=== PATIENT | male | born 1955 | race Caucasian/White ===

== ENCOUNTER → 2017-04-28 | Outpatient (CLI) | payer OTHER ==
[~2017-04-28] VITALS: Ht 190.5 cm; Wt 147.4 kg
[~2017-04-28] MED LIST: ACCUNEB SO1.25 MG/1 INH; GUAIFENESIN1200 MG PO; METFORMIN HCL500 MG PO; MOBIC15 MG PO; PIROXICAM20 MG PO; ROBITUSSIN100 MG/53 PO; STIOLTO RESPIMAT4 GM INH; XANAX 0.5 MG0.5 MG PO
--- NOTE | ~2017-04-28 | CATHLAB ---
[facility] [address] [place] [address] INVASIVE PROCEDURE REPORT Name: GARRETT MEDELLIN Room #: REG Janie#: [id number] Admission: 04/28/17 Attend Phys: Joon Tran Discharge: Date of : 55 Date of Service: 05/07/17 1015 Report #: [id number] THIS REPORT FOR: //name// APPROVED REPORT Patient Details Patient Status: Out-Patient Room #: The patient is a 61 year-old male Event Personnel Joon Kim Manager Video, Juli Diaz Monitor, Brigitte Lee Monitor, Eliecer Mcgovern RN, Syed Alejandre Scrub Procedures Performed Art Access - R femoral artery* 88549 Initial Mod Sed Same Phys/QHP Gr5y 803069 Left Heart Cath w/or w/o Coronaries [id number] [facility], supervision of conscious sedation Indication Positive stress test, Chest pain Procedure Narrative The patient was brought electively to the Cardiac Catheterization Laboratory and was prepped and draped in a sterile manner. The Right Groin^ was infiltrated with 1% Lidocaine subcutaneous anesthesia. A PINNACLE 4FR Sheath #[id number] sheath was inserted into the RFA^. Coronary angiography was performed using coronary diagnostic catheters. The right coronary system was accessed and visualized with a JR 4 catheter. The left coronary system was accessed and visualized with a JL 4 catheter. The left ventricle was accessed and visualized with a JR 4 catheter. Left ventricular/Aortic Valve gradient assessed via catheter pullback. Hemostasis was obtained with manual pressure following sheath removal without any complications. The patient tolerated the procedure well and there were no complications associated with the procedure. There was no hematoma. Intraoperative Conscious Sedation Sedation start time: 09:42 Case end Time: 10:03 Versed 2.0 mg Fluoro Time: 2.03 minutes Dose: DAP 5320.69 cGycm2 771 mGy Contrast Type and Amount: Omnipaque 55 [facility] [place] [address] INVASIVE PROCEDURE REPORT Name: GARRETT MEDELLIN CAREN Room #: REG CL [facility]#: [id number] Admission: 04/28/17 Attend Phys: Joon Tran Discharge: Date of : 55 Date of Service: 05/07/17 1015 Report #: [id number] Diagnostic Cath Left Main Normal origin and caliber. Long length. No significant stenosis noted. LAD Moderate caliber type II vessel which has a proximal 30% irregularity. It then continues in the anterior interventricular sulcus giving rise to septal and diagonal branches. The distal third tapers rapidly to a straining prior to terminating before the apex of the heart Diagonal 1 Moderate caliber vessel which courses along the anterolateral wall terminates in the apex and serves as a parallel LAD distribution vessel. Only luminal irregularities are noted. Circumflex Moderate caliber vessel which gives rise to a first marginal branch. This courses along the lateral wall. The circumflex continues on with a 30% lesion and a second marginal branch originates. It then terminates in the posterior wall give us a posterior atrial branch free of high-grade disease OM1 Small-caliber vessel coursing only and lateral wall with mild proximal luminal irregularities versus a myocardial bridge. No high-grade obstructive lesions are noted OM2 Moderate caliber vessel supplying the lateral inferior wall with luminal irregularities and no high-grade lesions noted Right Coronary Large-caliber vessel of normal origin that has irregularities in the proximal third of approximately 30%. Beyond the small acute marginal branch and then has a 40-50% eccentric lesion well before the origin of the posterior descending artery. The posterior circulation has smaller branches was taper primary to reaching the apex of the heart. R PDA Small moderate caliber vessel that has a 50% lesion in its ostium. It then courses in the posterior AV groove free of high-grade disease Left Ventriculography Left Ventriculography was not performed. Hemodynamics The aortic pressure is 174/87 mmHg with a mean of 123 mmHg. The left ventricular pressure is 166/2 mmHg with a mean of mmHg. The left ventricular end diastolic pressure is 22 mmHg. Conclusion 1. Coronary disease, mild, multivessel, nonobstructive 2. Normal hemodynamics [facility] [address] [address] INVASIVE PROCEDURE REPORT Name: GARRETT MEDELLIN Room #: REG CAL [place]#: [id number] Admission: 04/28/17 Attend Phys: Joon Tran Discharge: Date of : 55 Date of Service: 05/07/17 1015 Report #: [id number] Recommendations Cardiac Risk Reduction Program Aggressive Medical Therapy <ELECTRONICALLY SIGNED> By: Joon Kim MD 05/07/17 1015 1015 1015 Joon Kim MD /INF
--- NOTE | ~2017-04-28 | EKG ---
[place] [address] [facility] [employer] [place] [address] ELECTROCARDIOGRAM REPORT Name: GARRETT MEDELLIN Room #: REG CLCristina Lima#: [id number] Admission: 04/28/17 Attend Phys: Joon Kim Discharge: Date of : 55 Report #: [id number] THIS REPORT FOR: //name// [facility] Test Date: 2017-04-28 Test Time: 07:50:24 Pat Name: GARRETT MEDELLIN Department: Room: Gender: M Academy Director: KHARI : 1955 Requested By: Joon Kim Order Number: [id number] MD: Barrett Yoon Measurements Intervals [place] Rate: 74 P: -18 AL: 176 QRS: 77 QRSD: 102 T: 37 QT: 408 QTc: 453 Interpretive Statements Sinus rhythm No significant abnormality Compared to ECG 08/01/2005 16:36:07 No significant changes Electronically Signed On 04-28-2017 9:02:11 [employer] by Barrett Yoon [email or web address] <ELECTRONICALLY SIGNED> By: Barrett Yoon MD, [facility] 04/28/17 0902 0750 0750 Barrett Yoon MD, FACC /EPI
[2017-04-28 07:51] LABS: HEMATOCRIT 40.4 % (42.0-52.0); HEMOGLOBIN 13.7 gm/dL (14.0-18.0); MCH 29.3 pg (26.0-34.0); MCHC 33.8 g/dL (28.0-37.0); MCV 86.7 fL (80.0-100.0); RBC 4.67 mil/uL (4.50-6.00); WBC 9.8 thou/uL (4.0-11.0)
[2017-04-28 07:59] LABS: CALCIUM 9.4 mg/dL (8.5-10.1); CREATININE 0.9 mg/dL (0.7-1.3); POTASSIUM 4.5 mmol/L (3.5-5.1)
[2017-04-28 08:05] VITALS: BP 179/96
== END | disposition home or self-care (01) ==
LOC: CATH 07:27
PROVIDERS: Internal Medicine
DX: I25.10 Atherosclerotic heart disease of native coronary artery without angina pectoris (principal); I10 Essential (primary) hypertension; E11.9 Type 2 diabetes mellitus without complications; Z98.890 Other specified postprocedural states; Z79.899 Other long term (current) drug therapy

== ENCOUNTER → 2017-08-22 | Outpatient (CLI) | payer OTHER | LOC: RAD 08:39 | DX: M17.0 Bilateral primary osteoarthritis of knee (principal) ==

== ENCOUNTER → 2017-11-12 | Outpatient (CLI) | payer OTHER | LOC: ULTRA 13:19 | DX: N50.3 Cyst of epididymis (principal); N43.2 Other hydrocele ==

== ENCOUNTER 2019-03-18 10:12 | Day surgery (SDC) | payer OTHER ==
[~2019-03-18] VITALS: Ht 190.5 cm; Wt 142.9 kg
[~2019-03-18 10:12] MED LIST changes: +ASPIR 8181 MG PO; +BEVESPI AEROS10.7 GM INH; +BRILINTA90 MG PO; +COREG6.25 MG PO; +COZAAR 25 MG TA25 M2 PO; +LASIX 20 MG TAB20 MG PO; +LIPITOR80 MG PO; +PROAIR HFA8.5 GM INH; +TYLENOL325 MG PO
[2019-03-18 10:36] VITALS: BP 160/92
--- NOTE | 2019-03-22 06:11 | O ---
[facility] [place] [address] OPERATIVE REPORT Name: GARRETT MEDELLIN Room #: DEP [facility]..#: [id number] Admission: 03/18/19 Attend Phys: Miguel Mendoza MD Discharge: 03/18/19 Date of : 55 Report #: [id number] THIS REPORT FOR: //name// CC: Everett Jiang DATE OF SERVICE: 03/18/2019 PREOPERATIVE DIAGNOSES: Right lower lid lesion with nasolacrimal duct obstruction and right lower lid ectropion. POSTOPERATIVE DIAGNOSES: Right lower lid lesion with nasolacrimal duct obstruction and right lower lid ectropion. PROCEDURES: Excision of lesion of right lower lid with myocutaneous flap repair of defect on the eyelid margin, silicone lacrimal intubation, correction of right lower lid ectropion by myocutaneous flap, and nasal surgical video endoscopy. SURGEON: Miguel Mendoza MD. BLOCK SORTER: None. ANESTHESIA: General. COMPLICATIONS: None. INDICATIONS FOR SURGERY: This pleasant 63-year-old gentleman has a right lower lid lesion directly inferior to his inferior punctum that is inducing a secondary lacrimal outflow obstruction. The lesion appears to most likely be benign. 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 He presents today for excision of this lesion with repair of that defect along with silicone lacrimal intubation and nasal surgical video endoscopy. The current procedures are being undertaken in order to remove that lesion, repair of that defect, prevent his lacrimal system from collapsing, and to correct his lower lid ectropion. Informed consent was obtained to include but not limited to the potential risk for loss of vision, bleeding, infection, failure to improve the problem, the potential need for further surgery or treatment. DESCRIPTION OF PROCEDURE: The patient was taken to the operating room where general anesthesia was administered. The right medial canthal area, the right lower lid, and the right lateral canthal area in addition to the lateral wall of the nose were all anesthetized with Xylocaine with epinephrine mixed with Marcaine and Wydase. The right side of the nose was then packed with [facility] [address] [address] OPERATIVE REPORT Name: GARRETT MEDELLIN CAREN Room #: DEP [facility] M.R.#: [id number] Admission: 03/18/19 Attend Phys: Miguel Mendoza MD Discharge: 03/18/19 Date of : 55 Report #: [id number] Afrin-soaked cottonoids. The patient was subsequently prepped and draped in the usual sterile fashion. The lesion in the right lower lid was then inspected. An incision was then made 360 degrees around its margin with a Shruti scissor and drawn down on to the tarsal plate directly inferior to the punctum. The lesion was then excised en-bloc and passed off the field for permanent histopathologic analysis. A myocutaneous flap was then developed inferiorly and medially to be rotated superiorly and laterally to correct that defect. Hemostasis was then re-achieved. The flap was then advanced and secured with interrupted 6-0 plain gut sutures. The right lateral canthus was then clamped with a Tapia clamp. A sharp canthotomy and cantholysis was subsequently performed. A tarsal strip was then prepared laterally removing a short portion of the redundant lid margin and the redundant tarsal plate. Hemostasis was then re-achieved. Myocutaneous flap was then developed inferolaterally to be rotated superiorly to correct the ectropion. Hemostasis was once more achieved. The superior and inferior puncta were then dilated with a double-ended punctum dilator. The Asif tube was then passed through the superior canalicular system, but met a relative obstruction in the area of the inferior aspect of the inferior meatus. The cottonoids were removed from the nose and the nasal vault inspected. This was indeed confirmed that the Asif tube did not traverse the entire tract. The tube was removed and passed through the opposite canaliculus on the other eyelid on the right side and the nasal video endoscope was used to inspect the nasal vault once more. This confirmed that the inferior aspect of the duct was not straight. The decision was then made to use a monocanalicular stent. A monocanalicular stent with a large collarette head was then passed through the inferior canaliculus into the nasolacrimal duct, but not traversing the entire duct. That plug was then set on the eyelid margin, so that it was smooth. The tarsal strip was then secured to the internal portion of the lateral orbital tubercle with interrupted 5-0 Prolene sutures. The subcutaneous structures and the skin were then closed with interrupted 6-0 plain gut sutures. The wounds were then cleaned and dressed with erythromycin ophthalmic ointment. The patient subsequently transported to the recovery area having tolerated all the procedures well with no anesthetic or operative complications being noted. A bicanalicular intubation had been attempted, but not performed while a monocanalicular intubation was done. <ELECTRONICALLY SIGNED> By: Miguel Mendoza MD 03/22/19 0611 1147 1210 Miguel Mendoza MD /nt
--- NOTE | 2019-03-22 17:07 | PATH ---
[facility] [address] [place] [address] PATHOLOGY RPT PROCEDURE Name: GARRETT MEDELLIN Room #: DEP [facility] M.R.#: [id number] Admission: 03/18/19 Date of : 55 Discharge: 03/18/19 Report #: [id number] Path Case #: [id number] [facility] Accession Number: [id number] . 01 Material submitted: . lid - LESION RIGHT LOWER LID. Modifiers: right, lower . 01 Clinical history: . Lesion with ectropion . 02 Diagnosis: Skin, lesion right lower lid, excision: - Eccrine hidrocystoma. - Negative for malignancy. - Completely excised. - Chronic folliculitis. . (IUV:mml; 03/22/2019) QLM 03/22/2019 1418 Local . 02 Electronically signed: . Bettie Mcdonald MD, Pathologist NPI- [id number] . 01 Gross description: . Received in formalin labeled "Garrett Medellin, lesion right lower lid," is an ovoid segment of skin measuring 0.6 x 0.5 x 0.3 cm in greatest dimensions. The epidermal surface is raised and pale brody in appearance. The surgical margin is inked, and the specimen is bisected and submitted entirely in cassette A1. Sectioning reveals a cystic interior cavity filled with clear, colorless fluid. (DAC; 03/19/2019) XDC/XDC 03/19/2019 1059 Local . 02 Pathologist provided ICD-10: D04.112, L73.9, L98.9 . 02 CPT . 044591 Specimen Comment: A courtesy copy of this report has been sent to Specimen Comment: [phone], . Specimen Comment: Report sent to / DR WU Performed at: [address] [id number] MD Wei Stevens MD Phone: [phone] Performed at: 02 [place] [address] PATHOLOGY RPT PROCEDURE Name: GARRETT MEDELLIN Room #: DEP [facility] Diamond.Wu#: [id number] Admission: 03/18/19 Date of : 55 Discharge: 03/18/19 Report #: [id number] Path Case #: [id number] [facility] [address], [place], [place] [id number] MD Bettie Mcdonald MD Phone: [phone]
== END 2019-03-18 13:45 | disposition home or self-care (01) ==
LOC: OR 10:12 → TBA 10:14 → OR 10:33
DX: D23.112 Other benign neoplasm of skin of right lower eyelid, including canthus (principal); H02.102 Unspecified ectropion of right lower eyelid; L73.8 Other specified follicular disorders; H04.551 Acquired stenosis of right nasolacrimal duct; I10 Essential (primary) hypertension; E11.9 Type 2 diabetes mellitus without complications; I25.2 Old myocardial infarction; E78.5 Hyperlipidemia, unspecified; G47.30 Sleep apnea, unspecified; J44.9 Chronic obstructive pulmonary disease, unspecified; Z88.8 Allergy status to other drugs, medicaments and biological substances; Z98.42 Cataract extraction status, left eye; Z79.899 Other long term (current) drug therapy; Z87.891 Personal history of nicotine dependence; Z98.890 Other specified postprocedural states; Z79.82 Long term (current) use of aspirin
CPT/HCPCS: 50010; 50101; 50386; 50398; 51158; 51636; 56527; 56531; 62110; 62900; 64037; 70005

== ENCOUNTER → 2020-06-06 | Outpatient (CLI) | payer OTHER | LOC: LAB 14:23 | PROVIDERS: ATTEND Family Medicine | DX: U07.1 COVID-19 (principal) ==

== ENCOUNTER → 2020-11-14 | Outpatient (CLI) | payer OTHER | LOC: RAD 12:41 | PROVIDERS: ATTEND Family Medicine | DX: R06.02 Shortness of breath (principal) ==

== ENCOUNTER → 2020-11-24 | Outpatient (CLI) | payer OTHER | LOC: SJCVC 10:13 | PROVIDERS: ATTEND Internal Medicine | DX: Z13.220 Encounter for screening for lipoid disorders (principal); I25.2 Old myocardial infarction; E11.9 Type 2 diabetes mellitus without complications; E78.5 Hyperlipidemia, unspecified; I10 Essential (primary) hypertension; F41.9 Anxiety disorder, unspecified; F12.90 Cannabis use, unspecified, uncomplicated; Z87.891 Personal history of nicotine dependence; Z72.89 Other problems related to lifestyle; Z79.899 Other long term (current) drug therapy; Z79.84 Long term (current) use of oral hypoglycemic drugs; Z88.5 Allergy status to narcotic agent; Z88.8 Allergy status to other drugs, medicaments and biological substances ==

== ENCOUNTER → 2020-12-01 | Outpatient (CLI) | payer OTHER | LOC: SJCVCIMAG 08:17 | PROVIDERS: ATTEND Internal Medicine | DX: I27.20 Pulmonary hypertension, unspecified (principal); E11.9 Type 2 diabetes mellitus without complications; I25.10 Atherosclerotic heart disease of native coronary artery without angina pectoris; I10 Essential (primary) hypertension ==

== ENCOUNTER → 2020-12-04 | Outpatient (CLI) | payer OTHER | LOC: SJCVCIMAG 07:06 | PROVIDERS: ATTEND Internal Medicine | DX: I49.3 Ventricular premature depolarization (principal); R06.00 Dyspnea, unspecified; R51.9 Headache, unspecified; R06.02 Shortness of breath; R07.2 Precordial pain; E11.9 Type 2 diabetes mellitus without complications; E78.5 Hyperlipidemia, unspecified; I25.2 Old myocardial infarction; I25.10 Atherosclerotic heart disease of native coronary artery without angina pectoris; I10 Essential (primary) hypertension; E66.9 Obesity, unspecified; J44.9 Chronic obstructive pulmonary disease, unspecified; E78.00 Pure hypercholesterolemia, unspecified; Z95.5 Presence of coronary angioplasty implant and graft; Z68.41 Body mass index [BMI] 40.0-44.9, adult; Z88.5 Allergy status to narcotic agent; Z88.8 Allergy status to other drugs, medicaments and biological substances; Z79.82 Long term (current) use of aspirin; Z79.84 Long term (current) use of oral hypoglycemic drugs; Z79.899 Other long term (current) drug therapy; Z87.891 Personal history of nicotine dependence ==

== ENCOUNTER → 2020-12-25 | Outpatient (CLI) | payer OTHER | LOC: SJCVC 10:19 | PROVIDERS: ATTEND Internal Medicine | DX: R06.02 Shortness of breath (principal); E11.9 Type 2 diabetes mellitus without complications; E78.5 Hyperlipidemia, unspecified; I25.2 Old myocardial infarction; F41.9 Anxiety disorder, unspecified; F12.90 Cannabis use, unspecified, uncomplicated; Z87.891 Personal history of nicotine dependence; Z72.89 Other problems related to lifestyle; Z79.82 Long term (current) use of aspirin; Z79.899 Other long term (current) drug therapy ==

== ENCOUNTER → 2021-01-22 | Outpatient (CLI) | payer OTHER | LOC: SJCVC 08:42 | PROVIDERS: ATTEND Internal Medicine | DX: I10 Essential (primary) hypertension (principal); I25.10 Atherosclerotic heart disease of native coronary artery without angina pectoris; E11.9 Type 2 diabetes mellitus without complications; E78.00 Pure hypercholesterolemia, unspecified; E78.5 Hyperlipidemia, unspecified; R06.02 Shortness of breath; J45.909 Unspecified asthma, uncomplicated; Z95.5 Presence of coronary angioplasty implant and graft; F10.10 Alcohol abuse, uncomplicated; Z68.41 Body mass index [BMI] 40.0-44.9, adult; Z88.8 Allergy status to other drugs, medicaments and biological substances; Z79.82 Long term (current) use of aspirin; Z79.84 Long term (current) use of oral hypoglycemic drugs; Z79.899 Other long term (current) drug therapy; Z87.891 Personal history of nicotine dependence ==

== ENCOUNTER → 2021-02-26 | Outpatient (CLI) | payer OTHER | LOC: SJCVC 09:12 | PROVIDERS: ATTEND Internal Medicine | DX: I10 Essential (primary) hypertension (principal); E11.9 Type 2 diabetes mellitus without complications; E78.5 Hyperlipidemia, unspecified; I25.2 Old myocardial infarction; F41.9 Anxiety disorder, unspecified; Z87.891 Personal history of nicotine dependence; Z72.89 Other problems related to lifestyle; Z88.1 Allergy status to other antibiotic agents ==

== ENCOUNTER → 2021-03-26 | Outpatient (CLI) | payer OTHER | LOC: SJCVC 09:17 | PROVIDERS: ATTEND Internal Medicine | DX: I10 Essential (primary) hypertension (principal); I25.10 Atherosclerotic heart disease of native coronary artery without angina pectoris; E78.00 Pure hypercholesterolemia, unspecified; E11.9 Type 2 diabetes mellitus without complications; J45.909 Unspecified asthma, uncomplicated; F41.9 Anxiety disorder, unspecified; F12.90 Cannabis use, unspecified, uncomplicated; Z87.891 Personal history of nicotine dependence; Z72.89 Other problems related to lifestyle; Z88.5 Allergy status to narcotic agent; Z88.8 Allergy status to other drugs, medicaments and biological substances; Z79.82 Long term (current) use of aspirin; Z79.899 Other long term (current) drug therapy; Z79.84 Long term (current) use of oral hypoglycemic drugs ==

== ENCOUNTER → 2021-05-07 | Outpatient (CLI) | payer OTHER | LOC: SJCVC 10:23 | PROVIDERS: ATTEND Internal Medicine | DX: I10 Essential (primary) hypertension (principal); I25.10 Atherosclerotic heart disease of native coronary artery without angina pectoris; E78.00 Pure hypercholesterolemia, unspecified; J45.909 Unspecified asthma, uncomplicated; E11.9 Type 2 diabetes mellitus without complications; E78.5 Hyperlipidemia, unspecified; G47.33 Obstructive sleep apnea (adult) (pediatric); I21.9 Acute myocardial infarction, unspecified; F41.9 Anxiety disorder, unspecified; Z88.8 Allergy status to other drugs, medicaments and biological substances; Z79.82 Long term (current) use of aspirin; Z79.84 Long term (current) use of oral hypoglycemic drugs; Z79.899 Other long term (current) drug therapy; Z72.89 Other problems related to lifestyle; Z87.891 Personal history of nicotine dependence ==